=== PATIENT | male | born 1990 | race Caucasian/White ===

== ENCOUNTER 2024-12-07 14:17 | Day surgery (SDC) | payer SELFPAY ==
[2024-12-07] VITALS (8 sets, daily range): BP systolic 108–148; BP diastolic 72–97; PULSE 66–80; RESP 14–16; TEMP 36.1–36.6; O2SAT 97–100; BMI 25.7
--- NOTE | 2024-12-07 14:46 | HP.PCM_ITS ---
HPI - General General Date of Admission: 12/07/24 Date of Service: 12/07/24 Chief Complaint: Trouble swallowing [facility] Narrative MARIA ESTHER TYLER, is a 34 M who presents with the Chief Complaint: trouble swalowing Details: Esophagram 11/09/2024 normal - chicken/steak get stuck in lower esophagus, food will back up in the esophagus and then vomits to dislodge - dysphagia x6 months - symptoms are improving with avoiding trigger foods - denies any trouble with rice - denies any HB - denies any smoking - denies any h/o EtOH use - sipping 100% alcohol helps him dislodge food - does not drink alcohol any other time - denies any tobacco use - denies any family h/o autoimmune conditions - denies any h/o asthma - denies any h/o eczema [facility] Medical History Difficulty swallowing Non-smoker Home Medications ?Medication ?Instructions ?Recorded ?Last Taken ?Type NK 11/23/24 Unknown History Allergy/AdvReac Type Severity Reaction Status Date / Time No Known Allergies Allergy Verified 12/07/24 14:44 Surgical History No history of previous surgery Social History household members: spouse Smoking Status: Never smoker alcohol intake: never substance use type: does not use what type of physical activity do you participate in: other details: plays sports ROS Constitutional Constitutional: Denies fatigue, fever(s), poor appetite, weight gain or weight loss Gastrointestinal Gastrointestinal: Denies belching, bloating, change in bowel habits, change in stool character, chewing difficulty, coffee ground emesis, constipation, cramping, diarrhea, dyspepsia, dysphagia, early satiety, excessive flatus, fecal incontinence, heartburn, hematemesis, hematochezia, hemorrhoids, loose stools, melena, nausea, odynophagia, rectal bleeding, tenesmus, vomiting or weight changes Physical Exam Const alert, oriented x3, no apparent distress and healthy appearing General Appearance: cooperative GI normal to inspection, nondistended, normoactive bowel sounds, soft to palpation, non-tender and non-distended Percussion: normal to percussion Rectal Exam: deferred Assessment & Plan Assessment/Plan (1) Dysphagia: (2) Difficulty swallowing: PLAN: Assessment and Plan Assessment and Plan (1) Dysphagia: Status: Acute Plan 34y/o male referred by Marion Falcon PA-C for history of intermittent dysphagia to solid foods, specifically chicken, steak, and bread, which become impacted in the lower esophagus and require emesis for relief.?He reports improvement in symptoms by avoiding trigger foods and denies heartburn, smoking, alcohol use (except for occasional sips of 100% alcohol to facilitate bolus passage), and tobacco use.?There is no family history of autoimmune disease or esophageal cancer. He denies any personal history of asthma, or eczema.?Notably, a recent esophagram performed on November 09, 2024 was normal. The clinical picture is most consistent with intermittent solid food dysphagia and food impaction, which in adults is commonly associated with eosinophilic esophagitis (EoE), Schatzki ring, or esophageal motility disorders.?EoE should be considered given the recurrent food impactions and absence of reflux symptoms, although the lack of atopic history is less typical; EoE is frequently missed on barium studies and requires endoscopic biopsy for diagnosis. Esophageal motility disorders, such as distal esophageal spasm or hypercontractile (nutcracker) esophagus, can present with similar symptoms, though these typically involve both solids and liquids and are best evaluated with high-resolution manometry. In summary, this patient demonstrates classic features of intermittent solid food dysphagia with food impaction, most likely due to EoE, Schatzki ring, or an esophageal motility disorder.?Further evaluation with upper endoscopy and esophageal biopsy, as well as consideration of esophageal manometry, is recommended to establish a definitive diagnosis and guide management. I recommend postponing initiation of proton pump inhibitor therapy until after esophageal biopsies are completed, as PPI therapy may obscure histopathologic findings necessary for the diagnosis of EoE. I have instructed patient to avoid known trigger foods (chicken, steak, bread). I also recommend he take small bites, chew food thoroughly, and alternate sips of liquid with bites of food to reduce risk of bolus impaction and facilitate esophageal transit. He will follow-up in office post procedure to review findings and recommendations.
[2024-12-07] MEDS: Lactated Ringers 1,000 ML 15 ML IV (14:51)
--- NOTE | 2024-12-07 15:06 | PCM.PRE.AN2 ---
ASA Classification* ASA Classification ASA Classification: 1 Assessment & Plan Anesthesia* Anesthesia Assessment Anesthesia Assessment: Discussed sedation and/or anesthesia options, risks, benefits, and alternatives with patient/parents/legal guardian/POA. Questions invited. The patient/parents/legal guardian/POA seems to understand and agrees to proceed with anesthesia plan. Reviewed the physical assessment, medical history, allergy history and patient home medications list prior to surgery/procedure/anesthetic and documented any changes. Performed airway and anesthesia risk assessments. Anesthesia Type Anesthesia Type: MAC History Source History Obtained from:: Patient and Chart Anesthesia Focused Assessment* Temperature: 98 F Pulse Rate: 79 Blood Pressure: 148/79 Respiratory Rate: 16 Pulse Ox: 98 Oxygen Delivery Method: Room Air Airway Assessment Mouth opens: >3 cm Mallampati Score: I Teeth Condition: Missing (Missing 1 left upper molar. Rest are tight.) Neck Range of motion (ROM): Full ROM Labs Anesthesia Preop lab: CBC CHEMISTRY COAG Pre-Assessment Diagnosis/Proposed Procedure Planned Operative Procedure(s): EGD Anesthesia History Anesthesia History - customer assistance representative: Anesthesia History - customer assistance representative Hx Hospitalization No 12/02/24 12:44 Any Problems With Anesthesia No: NO SURGERY HX 12/02/24 12:44 Cholinesterase deficiency No 12/02/24 12:44 You/Your Family Experience No 12/02/24 12:44 fever (hyperthermia) with Relationship Recent Exposure to Contagious No 12/07/24 14:46 Disease Does patient have nerve No 12/02/24 12:44 stimulator Patient instructed to have device shut off --Does patient have Pacemaker No 12/07/24 14:46 or ICD? When Was Last Pacemaker Check QUESTION #4 FULL TEXT: You/Your Family Experience fever (hyperthermia) with Anesthesia Last Oral Intake Last Oral intake: Last Oral Intake NPO since 0000 12/07/24 14:46 Meds taken in AM with sips of water? Meds patient instructed to take am of surgery Any additional information?: Yes NPO since: 00:00 PONV PONV - customer assistance representative: PONV - customer assistance representative Female No 12/02/24 12:44 HX of Motion Sickness Yes 12/02/24 12:44 HX of N/V After Surgery No 12/02/24 12:44 Non-Smoker Yes 12/02/24 12:44 Duration of Surgery greater No 12/02/24 12:44 than 60 minutes Number of Risk Factors 2 12/02/24 12:44 PONV Score Moderate Risk 12/02/24 12:44 Height & Weight Height & Weight: Anesthesia: Height & Weight Height 5 ft 11 in 12/07/24 14:46 Weight: 83.461 kg 12/07/24 14:46 Body Mass Index (BMI) 25.7 12/07/24 14:46 Respiratory Assessment Respiratory Assessment - customer assistance representative: Respiratory Tract Infection Hx - customer assistance representative Hx Respiratory Tract Infection No 12/02/24 12:44 STOP Sleep Apnea STOP Sleep Apnea - customer assistance representative: STOP Sleep Apnea - customer assistance representative Hx Hypertension No 12/02/24 12:44 Hx Sleep Apnea No 12/02/24 12:44 CPAP BIPAP Do you snore loudly (louder No 12/02/24 12:44 than talking or can be heard Do you often feel tired/ No 12/02/24 12:44 fatigued/ sleepy during daytime? Has anyone observed you stop No 12/02/24 12:44 breathing during sleep? STOP Results Negative 12/02/24 12:44 QUESTION #5 FULL TEXT : Do you snore loudly (louder than talking or can be heard through closed doors)? Tobacco Use History Tobacco Use History - customer assistance representative: Tobacco Use History - customer assistance representative Tobacco Use Smoking Status Never smoker 12/02/24 12:44 Hx Tobacco Use No 12/02/24 12:44 Years Smoking Packs Smoked per Day Smoking Cessation Date was within the last 15 years Hx Smoking Cessation Date Hx Smoking Cessation Counseling Hematologic Medial History Hematologic Hx - customer assistance representative: Hematologic Medical Hx - foreign language stenographer Hx of Blood Transfusion No 12/02/24 12:44 Hx of Transfusion in last 3 No 12/02/24 12:44 Months Date of Last Transfusion (if within last 3 months) Ever experience any problems No 12/02/24 12:44 with transfusion(s)? Specify any problems Hx of Preganancy in last 3 N/A 12/02/24 12:44 Months Nurse Filling Out Transfusion DSCHRIBER 12/02/24 12:44 & Questions: Date: 12/02/24 12/02/24 12:44 Time: 12:45 12/02/24 12:44 Patient unable to answer at this time (ie. confused, unrespo /Reproduction History /Reproductive History - customer assistance representative: /Reproductive Hx- customer assistance representative Hx Now No 12/02/24 12:44 Gestational Age (in weeks): EDC: Hx Hx Para Hx Section SAB No 12/02/24 12:44 Active Medications Active Medications: Current Medications Generic Name Dose Route Start Last Admin Trade Name Freq PRN Reason Stop Dose Admin Lactated Ringer's 1,000 mls @ 15 mls/hr 12/07/24 14:45 12/07/24 14:51 IV 15 mls/hr .Q48H TAVO Administration PFSH Medical History Difficulty swallowing Non-smoker Home Medications ?Medication ?Instructions ?Recorded ?Last Taken ?Type NK 11/23/24 Unknown History Allergy/AdvReac Type Severity Reaction Status Date / Time No Known Allergies Allergy Verified 12/07/24 14:44 Surgical History No history of previous surgery no surgical history Social History household members: spouse Smoking Status: Never smoker alcohol intake: never substance use type: does not use what type of physical activity do you participate in: other details: plays sports Review of Systems (Anesthesia) ROS Narrative System reviewed and no additional complaints, except as documented.
--- NOTE | 2024-12-07 15:30 | EGD_PTH ---
PATIENT: MARIA ESTHER TYLER LOC: EN U#:[id number] AGE/SX: 34/M ROOM: RE12/07/[address]: Dr. Zeyad Celis DO : 1990 BED: DIS: 12/07/2024 SPEC #: [id number] RECD: 12/07/24 18:02 STATUS: SRAVAN ISIS #: [id number] ISADORA: 12/07/24 15:[address]: Zeyad Celis DEPT: SURGICAL PATHOLOGY RECD BY: Timothy Fraser ENTERED: 12/08/24 09:46 SP TYPE: EGD BIOPSY ADILENE DR: SUZIE Saxena Tissues: A - Esophagus, NOS B - Esophagus, NOS Procedures: Surgery Specimen Level IV HEADER OPERATION: EGD with biopsy and dilatation PRE-OP DIAGNOSIS: Dysphagia, difficulty swallowing TISSUE SUBMITTED: A- Mid esophagus, papilloma biopsy, B- Random esophagus biopsy MICROSCOPIC DIAGNOSIS A. Esophagus, mid, biopsy: - benign squamous papilloma. - squamous mucosa with reactive changes and up to 10 eosinophils per high power field. B. Esophagus, random, biopsy: - squamous mucosa with reactive changes. - 40 eosinophils per high power field MICROSCOPIC DESCRIPTION Slides are reviewed. GROSS DESCRIPTION A. Received in fixative is one container labeled with the patient's name and designated Mid esophagus, papilloma biopsy. The specimen consists of multiple irregular fragments of light gonzales soft tissue that in aggregate measure 1.3 x 0.5 x 0.1 cm. The specimen is totally submitted in one cassette. B. Received in fixative is one container labeled with the patient's name and designated Random esophagus biopsy. The specimen consists of multiple irregular fragments of light gonzales soft tissue that in aggregate measure 0.6 x 0.5 x 0.1 cm. The specimen is totally submitted in one cassette. NV 12/08/2024 CPT:97708l9
[2024-12-07] MEDS: Lidocaine 1% (5 ml sdv) 5 ML Vial 10 ML IV (15:33)
--- NOTE | 2024-12-07 15:53 | PCM.POST.ANE ---
Anesthesia: Postop Eval I Current Vital Signs Temperature: 97 F Pulse Rate: 71 Blood Pressure: 122/97 Respiratory Rate: 16 Pulse Ox: 99 Oxygen Delivery Method: Room Air Assessment Airway patent: Yes Spontaneous unlabored respirations: Yes Mental status: Awake and Calm nausea: No Vomiting: No Anesthesia Complication: No Fluid Hydration Crystalloid volume administer (ml): 300 Total IV fluid infused: 300 Progress Note Anesthesia document: Postop Eval 1 completed: Yes
--- NOTE | 2024-12-07 15:56 | OP.EGD_ITS ---
Patient Name: Ricci Hancock Procedure Date: 12/07/2024 3:25 PM Date of : 1990 Age: 34 Procedure: Upper GI endoscopy Indications: Dysphagia Providers: Zeyad Celis DO Referring MD: Delano Saxena Medicines: Monitored Anesthesia Care Patient Profile: This is a 34 year old male. Refer to note in patient chart for documentation of history and physical. Patient has symptoms of dysphagia with solids. The symptoms first began within the past few months. Complications: No immediate complications. Procedure: Pre-Anesthesia Assessment: - Prior to the procedure, a History and Physical was performed, and patient medications and allergies were reviewed. The patient is competent. The risks and benefits of the procedure and the sedation options and risks were discussed with the patient. All questions were answered and informed consent was obtained. Patient identification and proposed procedure were verified by the physician in the pre-procedure area. Mental Status Examination: alert and oriented. Airway Examination: normal oropharyngeal airway and neck mobility. Respiratory Examination: clear to auscultation. CV Examination: normal. Prophylactic Antibiotics: The patient does not require prophylactic antibiotics. Prior Anticoagulants: The patient has taken no anticoagulant or antiplatelet agents except for NSAID medication. ASA Grade Assessment: II - A patient with mild systemic disease. After reviewing the risks and benefits, the patient was deemed in satisfactory condition to undergo the procedure. The anesthesia plan was to use monitored anesthesia care (MAC). Immediately prior to administration of medications, the patient was re-assessed for adequacy to receive sedatives. The heart rate, respiratory rate, oxygen saturations, blood pressure, adequacy of pulmonary ventilation, and response to care were monitored throughout the procedure. The physical status of the patient was re-assessed after the procedure. After obtaining informed consent, the endoscope was passed under direct vision. Throughout the procedure, the patient's blood pressure, pulse, and oxygen saturations were monitored continuously. The gastroscope was introduced through the mouth, and advanced to the second part of duodenum. The upper GI endoscopy was accomplished without difficulty. The patient tolerated the procedure well. Scope In: 3:42:52 PM Scope Out: 3:51:10 PM Total Procedure Duration Time 0 hours 8 minutes 18 seconds Findings: Mucosal changes including ringed esophagus, longitudinal furrows and small-caliber esophagus were found in the entire esophagus. The dilation site was examined and showed moderate improvement in luminal narrowing. A single 5 mm polyp with no bleeding was found 28 cm from the incisors. The polyp was removed with a jumbo cold forceps. Resection and retrieval were complete. Verification of patient identification for the specimen was done. Estimated blood loss was minimal. No gross lesions were noted in the entire examined stomach. No gross lesions were noted in the entire examined duodenum. Impression: - Esophageal mucosal changes suggestive of eosinophilic esophagitis. - Esophageal polyp(s) were found. Resected and retrieved. - No gross lesions in the entire stomach. - No gross lesions in the entire examined duodenum. Recommendation: - Discharge patient to home. - Resume previous diet. - Continue present medications. - Await pathology results. Procedure Code(s): --- Professional --- 23312, Esophagogastroduodenoscopy, flexible, transoral; with biopsy, single or multiple CPT copyright 2021 [employer]. All rights reserved. The codes documented in this report are preliminary and upon linotype operator review may be revised to meet current compliance requirements. Zeyad Celis DO 12/07/2024 3:56:04 PM This report has been signed electronically. Number of Addenda: 0 Note Initiated On: 12/07/2024 3:25 PM
--- NOTE | 2024-12-07 15:56 | OP.PROVAT_ITS ---
12/07/2024 Delano Saxena Re : Upper GI endoscopy procedure for Ricci Hancock Dear Ezekiel This procedure was performed on Saturday, December 07, 2024. My impressions and recommendations are as follows: Impressions : - Esophageal mucosal changes suggestive of eosinophilic esophagitis. - Esophageal polyp(s) were found. Resected and retrieved. - No gross lesions in the entire stomach. - No gross lesions in the entire examined duodenum. Recommendations : - Discharge patient to home. - Resume previous diet. - Continue present medications. - Await pathology results. My findings are described in the full procedure note, which is enclosed. If I can be of further assistance, please feel free to contact me at . Sincerely, Zeyad Celis, 12/07/2024 3:56:04 PM This report has been signed electronically.
--- NOTE | 2024-12-07 15:58 | POSTOPAN2_ITS ---
Anesthesia Postop Eval I Sum Postop Eval Completion status Anesthesia document: Postop Eval 1 completed: Yes Anesthesia Postop Eval I Summary Anesthesia Postop Eval I Summary: Anesthesia Postop Eval I: Assessment Summary Airway patent Yes 12/07/24 15:53 PEARL [email or web address] Spontaneous unlabored Yes 12/07/24 15:53 PEARL MAKER.MDOT respirations Mental status Awake,Calm 12/07/24 15:53 PEARL [email or web address].MDOT nausea No 12/07/24 15:53 PEARL MAKER.MDOT Vomiting No 12/07/24 15:53 PEARL MAKER.MDOT Anesthesia Postop Eval I: Fluid Summary Crystalloid volume administer 300 12/07/24 15:53 PEARL MAKER.MDOT (ml) Colloids volume administered ( ml) Blood Product volume administered (ml) Total IV fluid infused 300 12/07/24 15:53 PEARL MAKER.MDOT Anesthesia Postop Eval I: Summary Notes Anesthesia Complication No 12/07/24 15:53 PEARL MAKER.MDOT Anesthesia Complication Comment: Post-operative progress note Anesthesia: Postop Eval II Evaluation Mental status: Awake and Calm Pain Level: 0 nausea: No Vomiting: No Complications Anesthesia Complication: No
--- NOTE | 2024-12-07 15:58 | PCM.POSTANE2 ---
Anesthesia Postop Eval I Sum Postop Eval Completion status Anesthesia document: Postop Eval 1 completed: Yes Anesthesia Postop Eval I Summary Anesthesia Postop Eval I Summary: Anesthesia Postop Eval I: Assessment Summary Airway patent Yes 12/07/24 15:53 ASSURANCE OFFICER.[email or web address] Spontaneous unlabored Yes 12/07/24 15:53 ASSURANCE OFFICER.MDOT respirations Mental status Awake,Calm 12/07/24 15:53 ASSURANCE [email or web address].MDOT nausea No 12/07/24 15:53 ASSURANCE OFFICER.MDOT Vomiting No 12/07/24 15:53 ASSURANCE OFFICER.MDOT Anesthesia Postop Eval I: Fluid Summary Crystalloid volume administer 300 12/07/24 15:53 ASSURANCE OFFICER.MDOT (ml) Colloids volume administered ( ml) Blood Product volume administered (ml) Total IV fluid infused 300 12/07/24 15:53 ASSURANCE OFFICER.MDOT Anesthesia Postop Eval I: Summary Notes Anesthesia Complication No 12/07/24 15:53 ASSURANCE OFFICER.MDOT Anesthesia Complication Comment: Post-operative progress note Anesthesia: Postop Eval II Evaluation Mental status: Awake and Calm Pain Level: 0 nausea: No Vomiting: No Complications Anesthesia Complication: No
== END 2024-12-07 16:36 | disposition home or self-care (01) ==
LOC: EN 14:22 → AC 14:25
PROVIDERS: Visit Provider Internal Medicine Gastroenterology
PROC: 0DJ08ZZ Inspection of Upper Intestinal Tract, Via Natural or Artificial Opening Endoscopic (ICD-10-PCS; CPT 43235; principal; 2024-12-07 15:25)
DX: D13.0 Benign neoplasm of esophagus (principal); R13.10 Dysphagia, unspecified
CPT/HCPCS: 43239; 88305; C1769